=== PATIENT | male | born 1975 | race African-American/Black ===

== ENCOUNTER → 2024-08-18 10:39 | Outpatient (REF) | payer OTHER, SELFPAY | LOC: HWRCS 10:39 | PROVIDERS: ATTENDING PHYSICIAN Internal Medicine Cardiovascular Disease; FAMILY PHYSICIAN Family Medicine | DX: I42.8 Other cardiomyopathies (principal) | CPT/HCPCS: 93306 ==

== ENCOUNTER → 2024-09-08 12:33 | Outpatient (REF) | payer OTHER, SELFPAY | LOC: DHCBC/DCA 12:33 | PROVIDERS: ATTENDING PHYSICIAN Internal Medicine Cardiovascular Disease; FAMILY PHYSICIAN Family Medicine | DX: I49.9 Cardiac arrhythmia, unspecified (principal) | CPT/HCPCS: 78452; 93017; A9500 ==

== ENCOUNTER 2024-12-15 07:36 | Day surgery (SDC) | payer OTHER, SELFPAY ==
[2024-12-08 10:57] VITALS: BMI 28.9
[2024-12-08 12:08] LABS: % Basophils 0.5 % (0-2); % Eosinophils 5.7 % (0-6); % Lymphocytes 49.5 % (20.5-51.1); % Monocytes 7.3 % (1.7-9.3); Absolute Eosinophils 0.2 10^3/uL (0-0.7); Absolute Lymphocytes 1.9 10^3/uL (1.2-3.4); Absolute Monocytes 0.3 10^3/uL (0.1-0.6); Absolute Neutrophils 1.4 10^3/uL (1.4-6.5); Hematocrit 44.7 % (39.0-52.0); Mean Corp Hgb Conc. 33.6 g/dL (33.0-37.0); Mean Corpuscular Hgb 27.8 pg (27.0-31.0); Mean Corpuscular Volume 82.9 fL (80.0-94.0); Nucleated Red Blood Cells % 0 % (-); Red Blood Cell Count 5.39 10^6/uL (4.70-6.10); Red Cell Dist. Width 13.8 % (11.5-14.5); White Blood Cell Count 3.8 10^3/uL (4.8-10.8)
[2024-12-08 12:09] LABS: ALT (SGPT) 32 U/L (0-50); AST (SGOT) 26 U/L (17-59); Albumin 4.4 g/dl (3.5-5.0); Alkaline Phosphatase 57 U/L (38-126); Blood Urea Nitrogen 17 mg/dl (9-20); Calcium 9.3 mg/dl (8.4-10.2); Carbon Dioxide 27 mmol/L (22-30); Chloride 103 mmol/L (98-107); Estimated Creatinine Clearance 84 ml/min; Glucose 85 mg/dl (70-99); Potassium 3.9 mmol/L (3.5-5.1); Sodium 139 mmol/L (135-145); Total Bilirubin 1.2 mg/dl (0.2-1.3); Total Protein 7.3 g/dl (6.3-8.2); eGFR > 60.00
[2024-12-15] VITALS (16 sets, daily range): BP systolic 99–149; BP diastolic 60–115; BMI 28.7
[2024-12-15] MEDS: LOW STRENGTH ASPIRIN 81 MG PO (08:48)
--- NOTE | 2024-12-15 10:12 | ITS.CL.PN ---
[employer] - Procedure Note
Procedure
Procedure Note:
CARDIAC CATHETERIZATION REPORT
Date of Procedure: 12/15/2024
Referring: Dr. Peyton Diane MD
Indication: cardiomyopathy, ventricular tachycardia, positive cardiac stress test
PROCEDURE(S)
1. right heart catheterization
2. left heart catheterization
3. coronary angiography
ACCESS
1. 6F right radial artery (closure: radial band)
2. 5F right antecubital vein (closure: manual hemostasis)
CATHETERS
1. 5F [place]
2. 6F JR4
3. 6F JL4
MODERATE SEDATION: 25 minutes of moderate sedation was utilized. An independent medical service representative was present to assist with and help manage the patient's level of consciousness and physiologic status.
ULTRASOUND GUIDED VASCULAR ACCESS (right radial artery): Ultrasound was utilized for vascular access. The vessel was visualized under ultrasound and noted to be patent. An image of the vessel was stored permanently in the patient's medical record.
Under direct ultrasound guidance, vascular access was obtained using a modified Seldinger technique and a 6 [place] sheath was placed.
ULTRASOUND GUIDED VASCULAR ACCESS (right brachial vein): Ultrasound was utilized for vascular access. The vessel was visualized under ultrasound and noted to be patent. An image of the vessel was stored permanently in the patient's medical record.
Under direct ultrasound guidance, vascular access was obtained using a modified Seldinger technique and a 5 [place] sheath was placed.
HEMODYNAMIC DATA
LV 104/13 (EDP 33) mmHg
AO 107/78 (mean 93) mmHg
RA 6 mmHg
RV 36/7 (EDP 12) mmHg
PA 40/21 (mean 28) mmHg
PCWP 20 mmHg
SaO2 95.0%
SvO2 66.8%
Hb 15.2 g/dL
CO/CI 4.48/2.14 L/min/m2
SVR 1554 dsc*-5
PVR 0.9 Wood units
CORONARY ANGIOGRAPHY
Dominance: Right
LM: large, normal
LAD: large vessel giving rise to a large D1, small D2, and wrapping around the apex. There are trivial luminal irregularities.
LCx: large vessel giving rise to a medium caliber OM1, large OM2, and two small LPL branches. There is no CAD.
RCA: large vessel giving rise to a moderate caliber RPDA and small RPL branch. There is no CAD.
RADIATION: dose 346.10 mGy; DAP 31.2 Gy*cm2; fluoroscopy time 6.7 min
CONCLUSIONS
1. moderately elevated biventricular filling pressures, mild postcapillary pulmonary hypertension, reduced cardiac output, and no aortic stenosis
2. trivial luminal irregularities only in a right dominant system
RECOMMENDATIONS
1. continued management of nonischemic cardiomyopathy and ventricular tachycardia
2. primary prevention of coronary artery disease
Copy to: Dr. Peyton Diane MD (development officer); Oscar Ram DO (PCP)
Signed: Luca Manzanares MD, PhD
== END 2024-12-15 13:04 | disposition home or self-care (01) ==
LOC: CATH 07:36
PROVIDERS: ATTENDING PHYSICIAN Student in an Organized Health Care Education/Training Program; FAMILY PHYSICIAN Family Medicine; OTHER PHYSICIAN Internal Medicine Cardiovascular Disease
DX: I42.9 Cardiomyopathy, unspecified (principal); I47.20 Ventricular tachycardia, unspecified; I27.29 Other secondary pulmonary hypertension; I42.8 Other cardiomyopathies
CPT/HCPCS: 99152; 99153; 36415; 76937; 80053; 85025; 93005; 93460; C1769; C1894; Q9967